=== PATIENT | male | born 1985 | race African-American/Black ===

== ENCOUNTER 2021-03-26 02:14 | Emergency (ER) | payer OTHER ==
[~2021-03-26 02:14] MED LIST: NORCO 5-325 TA1 EACH PO
== END 2021-03-26 05:19 | disposition home or self-care (01) ==
LOC: FER 02:14
DX: S61.212A Laceration without foreign body of right middle finger without damage to nail, initial encounter (principal); Z88.8 Allergy status to other drugs, medicaments and biological substances; W22.8XXA Striking against or struck by other objects, initial encounter; Y92.89 Other specified places as the place of occurrence of the external cause; Y99.0 Civilian activity done for income or pay
CPT/HCPCS: 73140; J2001